=== PATIENT | female | born 1940 | race Caucasian/White ===

== ENCOUNTER 2017-03-06 08:23 | Day surgery (SDC) | payer MEDICARE ==
[2017-03-06 09:00] VITALS: BMI 19.9
[2017-03-06 09:28] VITALS: O2SAT 100
--- NOTE | 2017-03-06 10:22 | CP.SDSHP ---
Same Day Surgery H & P - History Proposed Procedure: EGD/EUS Pre-Op Diagnosis: Gastric cancer - Allergies Allergies: Allergies Penicillins Allergy (Verified 03/06/17 09:00) RASH - Physical Exam General Appearance: Nl Vital Signs: Vital Signs 03/06/17 08:40 Temperature 98.0 F Pulse Rate 100 H Respiratory 20 Rate Blood Pressure 180/80 H O2 Sat by Pulse 100 Oximetry Mental Status: Alert & Oriented x3 Neuro: WNL Heart: WNL Lungs: WNL GI: WNL - {Optional Preform as Required} Abdomen: WNL - Impression Impression: Gastric cancer Pt. Evaluated Today:Candidate for Anesthesia & Procedure: Yes - Date & Time Date: 03/06/17 Time: 10:22 Short Stay Discharge - Short Stay Discharge Admitting Diagnosis/Reason for Visit: MALIGNANT ULCER Disposition: HOME/ ROUTINE
[2017-03-06] MEDS ORDERED: Propofol 10 mg/ml Inj (20 ML) ONE (11:16)
[2017-03-06 12:37] VITALS: TEMP 97.5
[2017-03-06 14:21] VITALS: BP 154/74; PULSE 81; RESP 15
== END 2017-03-06 14:00 | disposition home or self-care (01) ==
LOC: C.ENDO 08:23
PROVIDERS: ATTEND Internal Medicine
DX: C16.2 Malignant neoplasm of body of stomach (principal); K29.60 Other gastritis without bleeding
CPT/HCPCS: 43237; J2704